=== PATIENT | female | born 1995 | race Caucasian/White ===

== ENCOUNTER 2017-08-05 05:40 | Inpatient (IN) | END 2017-08-09 20:10 | disposition home or self-care (01) | DRG 766 ==

== ENCOUNTER 2018-09-21 22:12 | Outpatient (CLI) | payer OTHER ==
[~2018-09-21] VITALS: Ht 165.1 cm; Wt 124.4 kg
[~2018-09-21 22:12] MED LIST: PRENAT PO
[2018-09-21 22:33] VITALS: BP 112/76; PULSE 118; RESP 17; Ht 165.1 cm; Wt 124.4 kg
[2018-09-21] MEDS ORDERED: LACTATED RINGER'S 1,000 ML IV SCH (22:48)
[2018-09-22] MEDS ORDERED: LACTATED RINGER'S 1,000 ML IV SCH (01:30)
--- NOTE | 2018-09-22 04:40 | PN ---
Triage Information Date/Time Reason for visit: Abd/pelvic pain Weeks of Gestation 28 weeks /Para Diabetes: none Hypertention: none Objective Vital Signs Date Temp Pulse Resp B/P (MAP) Pulse Ox O2 O2 Flow FiO2 Time Delivery Rate 09/21/18 99.5 118 17 112/76 Room Air 22:33 (88) Intake and Output 09/21/18 09/21/18 09/22/18 1515:00 23:00 07:00 IntakeIntake Total 2000 ml OutputOutput Total 300 ml BalanceBalance 1700 ml Heart Rate: 150's Heart Rate Comments Reactive Results/Medications Result Diagram: 09/21/18 2325 09/21/18 2325 Results 24 hrs Laboratory Tests Test 09/21/18 23:00 09/21/18 23:25 Urine Color GERI Urine Clarity CLOUDY A Urine pH 5.0 Urine Specific [place] 1.029 Urine Ketones 2+ H Urine Nitrite NEGATIVE Urine Bilirubin NEGATIVE Urine Urobilinogen NEGATIVE Urine Leukocyte Esterase TRACE A Urine Microscopic RBC 7 H Urine Microscopic WBC 21 H Urine Squamous Epithelial Cells MODERATE Urine Bacteria MODERATE Urine Mucus MODERATE Urine Hemoglobin NEGATIVE Urine Glucose NEGATIVE Urine Total Protein 1+ H White Blood Count 12.0 H Red Blood Count 4.44 Hemoglobin 10.4 L Hematocrit 34.1 L Mean Corpuscular Volume 76.8 L Mean Corpuscular Hemoglobin 23.4 L Mean Corpuscular Hemoglobin Concent 30.5 L Red Cell Distribution Width 14.1 Platelet Count 319 Mean Platelet Volume 10.5 H Immature Granulocytes % 0.800 H Neutrophils % 88.2 H Lymphocytes % 7.2 L Monocytes % 3.4 Eosinophils % 0.2 Basophils % 0.2 Nucleated Red Blood Cells % 0.0 Immature Granulocytes # 0.090 H Neutrophils # 10.6 H Lymphocytes # 0.9 Monocytes # 0.4 Eosinophils # 0.0 Basophils # 0.0 Nucleated Red Blood Cells # 0.0 Sodium Level 138 Potassium Level 3.4 L Chloride Level 104 Carbon Dioxide Level 21 Anion Gap 13 Blood Urea Nitrogen 7 Creatinine 0.42 L Est Glomerular Filtrat Rate mL/min > 60 Glucose Level 101 Calcium Level 8.6 Total Bilirubin 0.2 Direct Bilirubin 0.00 Indirect Bilirubin 0.2 Aspartate Amino Transf (AST/SGOT) 23 Alanine Aminotransferase (ALT/SGPT) 18 Alkaline Phosphatase 113 Total Protein 7.6 Albumin 3.7 Globulin 3.90 H Albumin/Globulin Ratio 0.94 Amylase Level 88 Lipase 41 Medications Current Medications Lactated Ringer's 1,000 ml @ 125 mls/hr Q8H IV Last administered on 09/22/18at 01:38; Admin Dose 125 MLS/HR; Start 09/22/18 at 01:30 Disposition: Discharge Assessment/Plan After IV hydration and rest patient feels better. MARIEL THOMSON MD Sep 22, 2018 04:40
--- NOTE | 2018-09-22 05:03 | TRIAGE ---
OB Triage Datetime Report Generated by CPN: 09/22/2018 05:03 Datetime: 09/22/2018 03:41 Stage of : OB Triage Monitor Mode: External Quality: Mild Pattern: Normal: <= 5 Contractions in 10 Minutes Resting Tone [place]: Relaxed Heart Rate FHR Baseline Rate: 155 Monitor Mode: External US Variability: Moderate 6-25 bpm Accelerations: 15X15 Comments: Baby audibly active but difficult to monitor d/t pt body habitus Datetime: 09/22/2018 03:00 Labor Evaluation Frequency: none Monitor Mode: External Resting Tone [place]: Relaxed Heart Rate FHR Baseline Rate: 160 Monitor Mode: External US Variability: Moderate 6-25 bpm Accelerations: 15X15 Decelerations: None Datetime: 09/22/2018 02:13 Vaginal Exam Membrane Status: Intact Datetime: 09/22/2018 02:00 Labor Evaluation Frequency: NONE Monitor Mode: External Resting Tone [place]: Relaxed Heart Rate FHR Baseline Rate: 165 Monitor Mode: External US Variability: Moderate 6-25 bpm Accelerations: 15X15 Decelerations: None Datetime: 09/22/2018 01:42 Stage of : OB Triage Temperature Route: Oral Datetime: 09/22/2018 01:00 Labor Evaluation Frequency: NONE Monitor Mode: External Resting Tone [place]: Relaxed Heart Rate FHR Baseline Rate: 165 Monitor Mode: External US Variability: Moderate 6-25 bpm Accelerations: 15X15 Decelerations: None Comments: LOSS OF CONTACT DUE TO PT CHANGING POSITION/PT LARGE BMI Datetime: 09/22/2018 00:43 Stage of : OB Triage Temperature Route: Oral Datetime: 09/22/2018 00:00 Labor Evaluation Frequency: NONE Monitor Mode: External Resting Tone [place]: Relaxed Heart Rate FHR Baseline Rate: 165 Monitor Mode: External US Variability: Moderate 6-25 bpm Accelerations: None Decelerations: None Comments: LOSS OF CONTACT DUE TO GA/PT LARGE BMI Datetime: 09/21/2018 23:00 Labor Evaluation Frequency: NONE Monitor Mode: External Resting Tone [place]: Relaxed Heart Rate FHR Baseline Rate: 165 Monitor Mode: External US FHR Baseline Changes: Tachycardia Variability: Moderate 6-25 bpm Accelerations: None Decelerations: None Comments: LOSS OF CONTACT DUE TO GA/PT LARGE BMI Datetime: 09/21/2018 22:40 Stage of : OB Triage Maternal Assessment Level of Consciousness: Fully Conscious DTR's/Clonus: DTRs 2+; No Clonus Headache: Denies Blurred Vision: No Respiratory Effort: Unlabored; Regular Rhythm; Equal Expansion Breath Sounds, Left: Clear and Equal Breath Sounds, Right: Clear and Equal Nausea/Vomiting: Denies RUQ Epigastric Pain: Denies Lower Extremities Edema: None Degree: None Upper Extremities Edema: None Degree: None Facial Edema: None Temperature Route: Oral Fall Risk Assessment History of Falling: (0) No Secondary Diagnosis: (0) No Ambulatory Aid: (0) Bedrest/Nurse Assist IV Therapy: (0) No Gait: (0) Normal/Bedrest/Immobile Mental Status: (0) Oriented to Own Ability Fall Score: 0 Fall Risk Score Definition: No Risk: No action required Pain Assessment Pain Scale: 7 Pain Presence: Intermittent Pain Type: Contraction Pain Location: Abdomen Pain Goal: 3 Pain Relief Measures: Comfort Measures Datetime: 09/21/2018 22:38 Time of Arrival: 09/21/2018 22:02 EGA: 28.0 Arrived By: Ambulatory Arrived From: Emergency Dept Chief Complaint: PT PRESENTS TO TRIAGE WITH C/O OF ABD PAIN Q 15 MIN, SPOTTING WHEN WIPING SINCE 09/20, COUGH X4 DAYS AND A "FEVER" BUT DID NOT TAKE TEMPERATURE AT HOME Movement: Present Contractions: Occasional Rupture of Membranes: Denies Vaginal Bleeding: None Vaginal Discharge: Denies Recent Sexual Intercouse: Denies Abdominal Trauma: Not Applicable Patient Complaints: Other Time Provider Notified: 09/21/2018 22:46 Provider Notified: ALIX Initial Plan: EFM Datetime: 09/21/2018 22:24 Contraction Comments: TOCO APPLIED Comments: US APPLIED
== END 2018-09-22 04:42 | disposition home or self-care (01) ==
LOC: OBT 22:12 → L-D 22:14 → OBT 09-22 04:42
PROVIDERS: ATTEND Obstetrics & Gynecology
DX: O26.892 Other specified pregnancy related conditions, second trimester (principal); Z3A.28 28 weeks gestation of pregnancy; R10.2 Pelvic and perineal pain
CPT/HCPCS: 36415; 76815; 76817; 76818; 80053; 81001; 82150; 83690; 85025; 86850; 86900; 86901; 96360; 96361; J7120; Z7500; G0463

== ENCOUNTER 2018-10-03 19:41 | Outpatient (CLI) | payer OTHER ==
[~2018-10-03] VITALS: Ht 162.6 cm; Wt 109.2 kg
[2018-10-03 19:57] VITALS: Ht 162.6 cm; Wt 109.2 kg
[2018-10-03] MEDS ORDERED: LACTATED RINGER'S 1,000 ML IV* PRN (20:30)
--- NOTE | 2018-10-03 22:36 | PN ---
Triage Information Date/Time Reason for visit: Abd/pelvic pain Weeks of Gestation 29 weeks /Para Diabetes: none Hypertention: none Objective Heart Rate: 130's Heart Rate Comments Reactive Results/Medications Result Diagram: 10/03/18199910/03/181999 Results 24 hrs Laboratory Tests Test 10/03/18 20:00 White Blood Count 11.6 H Red Blood Count 4.56 Hemoglobin 10.7 L Hematocrit 34.3 L Mean Corpuscular Volume 75.2 L Mean Corpuscular Hemoglobin 23.5 L Mean Corpuscular Hemoglobin Concent 31.2 L Red Cell Distribution Width 14.2 Platelet Count 364 Mean Platelet Volume 10.4 Immature Granulocytes % 0.400 Neutrophils % 67.5 Lymphocytes % 24.1 Monocytes % 7.1 Eosinophils % 0.6 Basophils % 0.3 Nucleated Red Blood Cells % 0.0 Immature Granulocytes # 0.050 H Neutrophils # 7.9 H Lymphocytes # 2.8 Monocytes # 0.8 Eosinophils # 0.1 Basophils # 0.0 Nucleated Red Blood Cells # 0.0 Urine Color GERI Urine Clarity CLOUDY A Urine pH 5.0 Urine Specific [place] 1.031 H Urine Ketones NEGATIVE Urine Nitrite NEGATIVE Urine Bilirubin NEGATIVE Urine Urobilinogen 2+ H Urine Leukocyte Esterase TRACE A Urine Microscopic RBC 10 H Urine Microscopic WBC 15 H Urine Squamous Epithelial Cells MODERATE Urine Bacteria FEW A Urine Mucus MANY A Urine Hemoglobin NEGATIVE Urine Glucose NEGATIVE Urine Total Protein 2+ H Sodium Level 139 Potassium Level 3.4 L Chloride Level 107 Carbon Dioxide Level 19 L Anion Gap 13 Blood Urea Nitrogen 6 L Creatinine 0.45 Est Glomerular Filtrat Rate mL/min > 60 Glucose Level 82 Calcium Level 9.2 Total Bilirubin 0.2 Direct Bilirubin 0.00 Indirect Bilirubin 0.2 Aspartate Amino Transf (AST/SGOT) 41 Alanine Aminotransferase (ALT/SGPT) 56 Alkaline Phosphatase 142 H Total Protein 7.9 Albumin 3.8 Globulin 4.10 H Albumin/Globulin Ratio 0.92 Amylase Level 60 Lipase 49 Medications Current Medications Lactated Ringer's 1,000 ml @ 125 mls/hr Q8H PRN IV* hydration Last administered on 10/03/18at 20:53; Admin Dose 125 MLS/HR; Start 10/03/18 at 20:30 Imaging Results cervical length is normal Disposition: Discharge Assessment/Plan After IV hydration and rest, patient feels better and denies any symptoms. MARIEL THOMSON MD 17, 2019 22:36
--- NOTE | 2018-10-03 23:26 | TRIAGE ---
OB Triage Datetime Report Generated by CPN: 10/03/2018 23:25 Datetime: 10/03/2018 22:31 Heart Rate FHR Baseline Rate: 150 Monitor Mode: External US FHR Baseline Changes: No Baseline Change Variability: Moderate 6-25 bpm Datetime: 10/03/2018 21:00 Comments: continuous monitoring with loss of contact d/t maternal habitus. pt is morbidly obese Datetime: 10/03/2018 20:30 Comments: continuous monitoring with loss of contact d/t maternal habitus. pt is morbidly obese Datetime: 10/03/2018 19:57 Heart Rate FHR Baseline Rate: 150 FHR Baseline Changes: No Baseline Change Datetime: 10/03/2018 19:55 Comments: continuous monitoring with loss of contact d/t maternal habitus. patient is morbidly obes e has excessive pannus. Datetime: 10/03/2018 19:49 Time of Arrival: 10/03/2018 19:30 EGA: 29.5 Arrived By: Ambulatory Arrived From: Home Chief Complaint: 'DIZZY, ABD PAIN, SOME DIARRHEA,N/V "I FEEL SICK' PATIENT WAS SEEN FOR SAME SYMPTOMS ON 09/21/18 Movement: Present Contractions: Denies/Absent Rupture of Membranes: Denies Vaginal Bleeding: Scant Vaginal Discharge: Denies Recent Sexual Intercouse: Denies Abdominal Trauma: Not Applicable Patient Complaints: Nausea; Vomiting Time Provider Notified: 10/03/2018 20:05 Provider Notified: delshad Datetime: 10/03/2018 19:44 Stage of : OB Triage Assessment Type: Triage Maternal Assessment Level of Consciousness: Fully Conscious Headache: Denies Blurred Vision: No Respiratory Effort: Unlabored; Regular Rhythm; Equal Expansion Nausea/Vomiting: Denies RUQ Epigastric Pain: Denies Facial Edema: None Temperature Route: Oral Fall Risk Assessment History of Falling: (0) No Secondary Diagnosis: (0) No Ambulatory Aid: (0) Bedrest/Nurse Assist IV Therapy: (0) No Gait: (0) Normal/Bedrest/Immobile Mental Status: (0) Oriented to Own Ability Fall Score: 0 Fall Risk Score Definition: No Risk: No action required Datetime: 09/22/2018 04:27 Stage of : OB Triage Labor Evaluation Quality: Mild Pattern: Normal: <= 5 Contractions in 10 Minutes Resting Tone [place]: Relaxed Heart Rate FHR Baseline Rate: 160 Monitor Mode: External US FHR Baseline Changes: No Baseline Change Variability: Moderate 6-25 bpm Accelerations: 15X15 Decelerations: None Category: Category I Datetime: 09/21/2018 22:40 Fall Score: 0 Fall Risk Score Definition: No Risk: No action required Datetime: 09/21/2018 22:38 EGA: 28.0
== END 2018-10-03 22:47 | disposition home or self-care (01) ==
LOC: L-D 19:41 → OBT 19:41
PROVIDERS: ATTEND Obstetrics & Gynecology
DX: O26.893 Other specified pregnancy related conditions, third trimester (principal); Z3A.29 29 weeks gestation of pregnancy; R10.2 Pelvic and perineal pain
CPT/HCPCS: 36415; 76817; 76818; 80053; 81001; 82150; 83690; 85025; 96360; 96361; Z7500; G0463

== ENCOUNTER 2018-12-08 09:25 | Inpatient (IN) | payer OTHER ==
[~2018-12-08] VITALS: Ht 162.6 cm; Wt 125.4 kg
[2018-12-08 09:39] VITALS: Ht 162.6 cm; Wt 125.4 kg
[2018-12-08] MEDS ORDERED: OXYTOCIN 30 UNITS/LR 500 ML IV SCH (10:00)
[2018-12-08] MEDS ORDERED: CEFAZOLIN 3 GM in DEXTROSE 5% 100 ML IV ONE (10:00)
[2018-12-08] MEDS ORDERED: METHYLERGONOVINE 0.2 MG INJ IM PRN (10:00)
[2018-12-08] MEDS ORDERED: MISOPROSTOL 200 MCG TAB PR PRN (10:00)
[2018-12-08] MEDS ORDERED: AZITHROMYCIN 500MG/NS (PMX) 250 ML IV SCH (10:00)
[2018-12-08] MEDS ORDERED: OXYTOCIN 30 UNITS/LR 500 ML IV PRN (10:00)
[2018-12-08] MEDS ORDERED: CEFAZOLIN 2 GM/50 ML (PMX) 50 ML IVPB SCH (10:00)
[2018-12-08] MEDS ORDERED: CARBOPROST 250 MCG INJ IM PRN (10:00)
[2018-12-08] MEDS: LACTATED RINGER'S 1,000 ML IV SCH ×2 (10:20→19:12)
--- NOTE | 2018-12-08 20:42 | PREAC ---
Date/Time of Note Date/Time of Note DATE: 12/08/18 TIME: 20:41 Anesthesia Eval and Record Evaluation Time Pre-Procedure Interview DATE: 12/08/18 TIME: 20:41 Age 23 Sex female NPO: 8 hrs Preoperative diagnosis previous c section Planned procedure repeat c section Past Medical History Past Medical History: Includes GI: Morbid obesity Surgery & Anesthesia Issues No known issue Meds Anticoagulation: No Beta Mauricio within 24 hr: No Reason Beta Mauricio not given: Pt. not on B-Mauricio Reported Medications Multivit/Min/Fol Ac/Iron/Pren* ( S*) 1 Tab Tab, 1 TAB PO DAILY, TAB 04/08/16 Current Medications Lactated Ringer's 1,000 ml @ 125 mls/hr Q8H IV Last administered on 12/08/18at 19:12; Admin Dose 125 MLS/HR; Start 12/08/18 at 09:35 Oxytocin/Lactated Ringer's 500 ml @ 125 mls/hr POST IV ; Start 12/08/18 at 10:00 Oxytocin/Lactated Ringer's 500 ml @ 0 mls/hr ONCE PRN IV .VAGINAL BLEEDING; Sta rt 12/08/18 at 10:00 Methylergonovine Maleate (Methergine) 0.2 mg ONCE PRN IM .VAGINAL BLEEDING; Sta rt 12/08/18 at 10:00 Carboprost Tromethamine (Hemabate) 250 mcg ONCE PRN IM .VAGINAL BLEEDING; Start 12/08/18 at 10:00 Misoprostol (Cytotec) 1,000 mcg ONCE PRN GA .VAGINAL BLEEDING; Start 12/08/18 at 10:00 Meds reviewed: Yes Allergies Coded Allergies: No Known Allergy (Unverified , 10/03/18) Allergies Reviewed: Yes Labs/Studies Labs Reviewed: Reviewed by anesthesiologist Result Diagram: 12/08/18 1010 Laboratory Tests 12/08/18 10:10 Blood Bank Test 12/08/18 10:10 Antibody Screen NEGATIVE Blood Product Summary Counts Blood Type A POSITIVE Rh Immune Globulin Candidate NO test: N/A Pre-procedure Exam Airway: Adequate mouth opening, Adequate thyromental dist Mallampati: Mallampati III Teeth: Normal Lung: Normal Heart: Normal ASA Physical Status ASA physical status: 2 Emergency: None Pre-operative Attestations Prior to commencing anesthesia and surgery, the patient was re-evaluated, there was verification of: *The patient's identity *The results of appropriate recent lab work and preoperative vital signs *The above evaluation not changing prior to induction *Anesthetic plan, risk benefits, alternative and complications discussed with patient/family; questions answered; patient/family understands, accepts and wishes to proceed. TAMIE KONG DO December 08, 2018 20:42
[2018-12-08] MEDS ORDERED: morphine SULFATE/PF (10 MG/10 ML) INJ ONE ×2 (20:45→20:46)
[2018-12-08] MEDS ORDERED: FENTAnyl 50 MCG/ML VIAL ONE (20:45)
--- NOTE | 2018-12-08 20:49 | HP ---
Date/Time of Note Date/Time of Note DATE: 12/08/18 TIME: 20:44 OB - History Hx of Present Free Text/Dictation 23 years old 4 para 3-0-0-3 with single intrauterine at 39 weeks and 1 day with ADRIAN of 12/14/2018 and 3 previous delivery admitted for repeat delivery. She states good movement. She denies nausea, vomiting, shortness of breath, chest pain, headache, visual changes, vaginal bleeding or LOF. Risk factors: 1. Previous delivery x3 2. ObesityBMI of 47.5 3. Anemiahemoglobin 9.1 Chief Complaint: Scheduled for repeat delivery Estimated Due Date: December 14, 2018 : 403 Para: 0 Spontaneous : 0 Care: Good Care Ultrasounds: Normal mid trimester US Obstetrical Complications: None Medical Complications: None Past Family/Social History * Past Medical, Surgical, Family and Obstetric Histories reviewed from chart. Blood Type: A+ Rubella: not immune RPR/VDRL: Negative GBS Status: Negative HBsAG: Negative OB Admission Exam Vital Signs Vital Signs Blood pressure 126/73, pulse rate 72/minutes, respiratory rate 16/minutes, temperature 98.6 Physical Exam HEENT: WNL Heart: Rhythm Normal Lungs: Clear Abdomen: WNL Extremities: Normal Reflexes: Normal Membranes: Intact Accelerations: Accelerations Present Decelerations: No Decelerations Varibility: Moderate Contractions on Admission: None Last 72 hours Lab Results CBC & BMP 12/08/18 10:10 OB Assessment/Plan Other plan: 23 years old 4 para 3-0-0-3 with 3 previous delivery admitted for repeat delivery. -FHR: No sign of metabolic acidosis- Category I -Continuous EFM, toco -CBC, blood type and screen -Receptive options with the risk, benefit, alternative, failure rate discussed in detail with patient during visit. She decided to have bilateral tubal ligation and signed the consent form. However today she states is not interested to bilateral tubal ligation anymore -Please see the orders -A+/Rubella: None immune -GBS: Negative The risk of delivery including but not limited to bleeding, infection, injury to other organs (bowel, bladder, ureter, vessels, nerves), injury to fetus, blood transfusion, blood transfusion related infection, risk of anesthesia, adhesion, needs for future , removal of uterus or any other indicated surgery was discussed with the patient and her family. She expressed understanding. All of her questions were answered. She signed the informed consent. PHYSICIAN'S VERIFICATION OF INFORMED CONSENT The patient was counseled regarding the procedure, its indications, risks, potential complications and alternatives and any questions were answered. Consent was obtained. PLANNED PROCEDURE/TREATMENT: delivery with possible using vacuum/forceps and any other indicated surgery PHYSICIAN'S VERIFICATION OF INFORMED CONSENT FOR BLOOD TRANSFUSION: There is a reasonable possibility that blood transfusion will be necessary as a result of the patient's procedure. I have discussed the following with the patient/patient's legal ict sales representative: An explanation of the benefits and risks of the transfusion of blood or blood products and the possible alternat gurwinder. All questions have been answered to the patient's satisfaction. INFORMED CONSENT:The patient has been informed of: The nature of the proposed care, treatment, services, medications, interventi ons or procedures. Potential benefits, risks or side effects, including potential problems related to recuperation. The likelihood of achieving care treatment and service goals. Reasonable alternatives to the proposed care, treatment and service. The relevant risks, benefits and side effects related to alternatives, including the possible results of not receiving care, treatment and services. When indicated, any limitations on the confidentiality of information learned from or about the patient. If appropriate, the risks, benefits and alternatives of the drugs to be used for sedation/analgesia including moderate sedation. If appropriate, patient has been provided information on the risks, benefits and alternatives to the transfusion of blood and/or blood products. If appropriate, patient has been provided information regarding the [employer] Blood Act. KOSTAS ART December 08, 2018 20:49
[2018-12-08] MEDS ORDERED: HYDROmorphONE 0.5 MG/0.5 ML SYG IV PRN ×2 (21:00)
[2018-12-08] MEDS ORDERED: ONDANSETRON 4 MG INJ IV PRN (21:00)
[2018-12-08] MEDS ORDERED: DEXAMETHASONE 4 MG/ML 1 ML INJ ONE (21:00)
[2018-12-08] MEDS ORDERED: DIPHENHYDRAMINE 50 MG INJ IV PRN (21:00)
[2018-12-08] MEDS ORDERED: ZOLPIDEM 5 MG TAB PO PRN (21:00)
[2018-12-08] MEDS ORDERED: NALOXONE (0.4 MG/ML) INJ IV PRN (21:00)
--- NOTE | 2018-12-08 22:44 | PAC ---
Date/Time of Note Date/Time of Note DATE: 12/08/18 TIME: 22:43 Post-Anesthesia Notes Post-Anesthesia Note Last documented vital signs 124/58 80 96% 98 19 Activity: WNL Respiratory function: WNL Cardiovascular function: WNL Mental status: Baseline Pain reasonably controlled: Yes Hydration appropriate: Yes Nausea/Vomiting absent: Yes TAMIE KONG DO December 08, 2018 22:44
--- NOTE | 2018-12-08 23:37 | OPR ---
Operative Report Planned Procedure Procedure date December 08, 2018 Procedure(s) 1. Repeat low transverse delivery 2. Lysis of adhesion Performed by see signature line Patient Account Liaison: JAYY DE PAZ MD Anesthesiologist: TAMIE KONG DO Pre-procedure diagnosis 23 years old 4 para 3-0-0-3 with 3 previous delivery at 39 weeks and 1 day [id number] Anesthesia Type: [id number] spinal Post-Procedure Post-procedure diagnosis 23 years old 4 para 3-0-0-3 with single intrauterine at 39 weeks and 1 day Findings 1. Normal uterus except for 5 m window at center toward left side of lower uterine segment. Normal fallopian tubes and ovaries. 2. There was multiple omental adhesion to the peritoneum 3. Viable female in cephalic presentation. 8 at one minute and 9 in 5 minutes. Weight: 7 pounds 2 ounces. Time of delivery: 21: 35 4. Placenta with three vessel cord 5. Amniotic fluid - Clear Estimated Blood Loss: 600 - 700 mls Specimen(s) none Grafts/Implant(s) none Complication(s) none Pt Condition post procedure: stable Disposition: PACU Procedure Description INDICATION AND HISTORY: A 23 years old 4 para 3-0-0-3 at 39 weeks and 1 days with 3 previous delivery. The risk of delivery including but not limited to bleeding, infection, injury to other organs (bowel, bladder, ureter, vessels, nerves), injury to fetus, blood transfusion, blood transfusion related infection, risk of anesthesia, adhesion, needs for future , removal of uterus or any other indicated surgery was discussed with the patient and her family. She expressed understanding. All of her questions were answered. She signed the informed consent. DESCRIPTION OF OPERATION: The patient was taken to the operating room, where she was identified and the procedure was verified. The patient received three gram of Ancef 30 minutes prior to surgery. Spinal anesthesia was placed by anesthesiologist. The patient placed in the dorsal supine position with a left tilt. The heart rate was 137 bpm. The patient was then prepped and draped in the normal sterile fashion. A Pfannenstiel skin incision was made and carried down to the fascia with Bovie. The fascia was incised in the midline and the fascial incision was carried laterally with Joseph scissors. The superior portion of the fascial incision was then grasped with Dora clamps and tented up and dissected off the underlying rectus muscle with sharp dissection. The lower portion of the fasc ial incision was then made in a similar fashion. The rectus muscle was and the peritoneum was entered. The peritoneal incision was then stretched and a bladder blade was inserted. As noted above there was a 5 cm window at center toward the left side of lower uterine segment. An incision was made above the window in a transverse fashion with a knife and extended bluntly. The was delivered atraumatically in cephalic presentation with the above findings. The umbilical cord was clamped and cut. The neonatology resuscitation team was present and the baby was handed to them. A cord blood sample was obtained for further evaluation. The placenta and membrane, which appeared normal were Removed. The uterus was exteriorized and cleared of all clot and debris. The uterus was then closed in a two layer fashion with 0- Monocryl. There was only the peritoneum on the the window, lateral edge of the window was approximated with the 0 Vicryl. Intercede placed on the lower uterine segment. At the time of closure, hemostasis was noted. The gutters were irrigated. There was multiple omental adhesion on the peritoneum which clamp, cauterize and suture-ligated. Then the peritoneum was reapproximated with 3-0 Vicryl. The muscle was reapproximated with 3-0 Vicryl. The fascia was approximated with 0-PDS in a running fashion. The subcutaneous tissue was re approximated with 3-0 vicryl in 2 layer. The skin was closed with 4-0 Monocryl. All instruments, sponges and needle counts were correct x3. The patient tolerated the procedure well. She transferred to the recovery room in stable condition. KOSTAS ART December 08, 2018 23:37
[2018-12-08] MEDS: KETOROLAC 30 MG INJ IV PRN (23:41)
[2018-12-09] VITALS (7 sets, daily range): BP systolic 85–101; BP diastolic 43–74; PULSE 61–68; RESP 16–20
[2018-12-09] MEDS ORDERED: OXYTOCIN 30 UNITS/LR 500 ML IV SCH (02:02)
[2018-12-09] MEDS: DEXTROSE 5%-LR 1,000 ML IV SCH ×3 (02:02→18:02)
[2018-12-09] MEDS ORDERED: METHYLERGONOVINE 0.2 MG INJ IM PRN (02:30)
[2018-12-09] MEDS ORDERED: LANOLIN HPA 1 PKT TOP PRN (02:30)
[2018-12-09] MEDS ORDERED: CARBOPROST 250 MCG INJ IM PRN (02:30)
[2018-12-09] MEDS ORDERED: METHYLERGONOVINE 0.2 MG TAB PO PRN (02:30)
[2018-12-09] MEDS ORDERED: MISOPROSTOL 200 MCG TAB PR PRN (02:30)
[2018-12-09] MEDS ORDERED: OXYTOCIN 30 UNITS/LR 500 ML IV PRN (02:30)
[2018-12-09] MEDS ORDERED: MAGNESIUM HYDROXIDE 30ML CUP PO PRN (02:30)
[2018-12-09] MEDS: KETOROLAC 30 MG INJ IV PRN ×2 (05:29→14:21)
[2018-12-09] MEDS: SENNA/DOCUSATE NA (8.6MG/50MG) TAB PO SCH ×2 (09:45→22:21)
[2018-12-09] MEDS ORDERED: DIPHTH/TET/ACEL PERTUSS (ADULT) 0.5 ML VIAL IM* ONE (11:00)
[2018-12-09] MEDS ORDERED: LACTATED RINGER'S 500 ML IV ONE (16:30)
--- NOTE | 2018-12-09 19:21 | PN ---
Date/Time of Note Date/Time of Note DATE: 12/09/18 TIME: 18:56 OB Subjective Subjective Subjective Has not been out of the bed yet. Urinated. Reports decreased vaginal bleeding. Reports some nausea. Pain well-controlled with p.o. pain medication. Reports he still has some nausea. Tolerated clear liquid diet. Passed flatus. OB Objective Objective Objective GA: A&O. NAD Abdomen: soft, with appropriate tenderness in the section incision Symptoms, no calf tenderness, no click no edema. SCDs are on Burrell draining concentrated urine Lungs: Clear to auscultation bilaterally CV: RRR VS - Last 72 Hours, by Label Date Temp Pulse Resp B/P (MAP) Pulse Ox O2 O2 Flow FiO2 Time Delivery Rate 12/09/18 97.6 65 18 93/50 (64) 97 Room Air 16:30 12/09/18 97.7 65 18 85/43 (57) 97 Room Air 16:00 12/09/18 97.8 64 18 94/55 (68) 97 12:05 12/09/18 97.8 66 18 101/69 97 08:00 (80) 12/09/18 98.4 61 18 96/53 (67) 97 Room Air 04:00 12/09/18 97.9 68 20 95/74 (81) 97 Room Air 00:45 CBC & BMP 12/08/18 10:10 12/09/18 07:56 OB Assessment/Plan Other Assessment: Postop day #1 status post repeat section Postop anemia, asymptomatic Hypertension, asymptomatic, likely dehydration Start IV fluid, 500 cc IV bolus Follow-up of her blood pressure and symptoms Routine postop care Start iron with vitamin after tolerating p.o. well Routine postop care JAYY DE PZA MD December 09, 2018 19:21
[2018-12-09] MEDS ORDERED: HYDROCODONE/APAP (5/325) TAB PO PRN (21:00)
[2018-12-09] MEDS: IBUPROFEN 800 MG TAB PO SCH (22:21)
[2018-12-09] MEDS: HYDROCODONE/APAP (5/325) TAB PO SCH (22:21)
[2018-12-10 00:28] VITALS: BP 97/54; PULSE 68; RESP 18
[2018-12-10] MEDS: DEXTROSE 5%-LR 1,000 ML IV SCH (01:35)
[2018-12-10 03:58] VITALS: BP 90/54; PULSE 63; RESP 16
[2018-12-10] MEDS: HYDROCODONE/APAP (5/325) TAB PO SCH ×3 (06:27→22:00)
[2018-12-10] MEDS: IBUPROFEN 800 MG TAB PO SCH ×3 (06:27→21:59)
[2018-12-10 08:00] VITALS: BP 91/55; PULSE 67; RESP 16
[2018-12-10] MEDS: SENNA/DOCUSATE NA (8.6MG/50MG) TAB PO SCH ×2 (10:16→22:00)
--- NOTE | 2018-12-10 11:30 | QN ---
Documentation Comment flatus pos no B.M yet Vss sfebrile abdomen soft wound dry calf neg for tenderness lochia min A sstable post Rc/s P as ordered SARA MATTHEWS MD December 10, 2018 11:30
[2018-12-10 15:50] VITALS: BP 101/62; PULSE 74; RESP 18
[2018-12-10 20:00] VITALS: BP 108/71; PULSE 88; RESP 18
[2018-12-11 04:07] VITALS: BP 105/57; PULSE 93; RESP 18
[2018-12-11] MEDS: IBUPROFEN 800 MG TAB PO SCH ×2 (05:32→14:14)
[2018-12-11] MEDS: HYDROCODONE/APAP (5/325) TAB PO SCH ×2 (06:00→14:00)
[2018-12-11 08:45] VITALS: BP 108/67; PULSE 95; RESP 16
[2018-12-11] MEDS ORDERED: DIPHTH/TET/ACEL PERTUSS (ADULT) 0.5 ML VIAL IM* ONE (09:00)
[2018-12-11] MEDS ORDERED: MEASLES,MUMPS,RUBELLA VACCINE INJ SC* ONE (09:00)
[2018-12-11] MEDS: SENNA/DOCUSATE NA (8.6MG/50MG) TAB PO SCH (09:12)
[2018-12-11 16:00] VITALS: BP 104/67; PULSE 81; RESP 18
--- NOTE | 2018-12-11 16:59 | DS ---
Date/Time of Note Date/Time of Note DATE: 12/11/18 TIME: 16:58 Obstetrical Discharge Record Final Diagnosis Final Diagnosis: Term delivered Other Final Diagnosis Postop day #3 Status pos repeat Patient stable and afebrile Patient is ambulating, tolerating regular diet, voiding and positive flatus Vital signs stable Hematology - 72 Hrs Test 12/09/18 07:56 Hematocrit 30.3 % (37.0-47.0) L Hemoglobin 8.9 g/dl (12.0-16.0) L Mean Corpuscular Hemoglobin 21.5 pg (29.0-33.0) L Mean Corpuscular Hemoglobin Concent 29.4 g/dl (32.0-37.0) L Mean Corpuscular Volume 73.4 fl (82.0-101.0) L Mean Platelet Volume 11.2 fl (7.4-10.4) H Platelet Count 279 10^3/UL (140-415) Red Blood Count 4.13 10^6/ul (4.20-5.40) L Red Cell Distribution Width 15.0 % (11.5-14.5) H White Blood Count 15.0 10^3/ul (4.8-10.8) #H Abdomen soft, fundus firm Incision clean, dry, intact Extremities nontender Assessment and plan Patient stable and doing well Plan to discharge home Patient instructed to follow-up with her own ADULT FAMILY HOME PROGRAM MANAGER in 2 and 6 weeks Section Section: Repeat Condition on Discharge Physical Assessment Last Vitals: VS - Last 72 Hours, by Label Date Temp Pulse Resp B/P (MAP) Pulse Ox O2 O2 Flow FiO2 Time Delivery Rate 12/11/18 97.9 81 18 104/67 16:00 (79) 12/11/18 98.0 95 16 108/67 Room Air 08:45 (81) 12/11/18 98.0 93 18 105/57 Room Air 04:07 (73) 12/10/18 98.7 88 18 108/71 Room Air 20:00 (83) 12/10/18 97.8 74 18 101/62 Room Air 15:50 (75) 12/10/18 98.3 67 16 91/55 (67) Room Air 08:00 12/10/18 97.7 63 16 90/54 (66) Room Air 03:58 12/09/18 98.1 68 16 97/54 (68) 96 Room Air 20:00 12/09/18 97.6 65 18 93/50 (64) 97 Room Air 16:30 12/09/18 97.7 65 18 85/43 (57) 97 Room Air 16:00 12/09/18 97.8 64 18 94/55 (68) 97 12:05 12/09/18 97.8 66 18 101/69 97 08:00 (80) 12/09/18 98.4 61 18 96/53 (67) 97 Room Air 04:00 12/09/18 97.9 68 20 95/74 (81) 97 Room Air 00:45 Voiding: Yes Bowel Movement: Yes Breast: Soft, non-tender Fundus: Firm Calf Tenderness: No Patient Condition: Good Copies To: CC: [facility] ; VIDAL BRIGGS MD December 11, 2018 16:59
--- NOTE | 2018-12-12 19:51 | DELSUM ---
Delivery Summary A-C Datetime Report Generated by CPN: 12/12/2018 19:51 DELIVERY PERSONNEL Berry Picker: Gilliland, Nikia MATERNAL INFORMATION Delivery Anesthesia: Spinal Medications in Delivery: see anesthesia records Delivery QBL (ml): 600 Placenta Cultured: No Maternal Complications: Other Other Maternal Complications: MORBID OBESITY LABOR SUMMARY EDC: 12/14/2018 00:00 No. Babies in Womb: 1 Attempted: No Labor Anesthesia: None LABOR INFORMATION Reason for Induction: Not Applicable Oxytocin: N/A Group B Beta Strep: Positive Antibiotics # of Doses: 1 Antibiotics Time of Last Dose: 12/08/2018 21:00 Steroids Given: None Reason Steroids Not Administered: Not Applicable MEMBRANES Membranes Rupture Method: Artificial Rupture of Membranes: 12/08/2018 21:33 Length of Rupture (hr): 0.03 Amniotic Fluid Color: Bloody Amniotic Fluid Amount: Moderate STAGES OF LABOR Stage 3 hr: 0 Stage 3 min: 1 CSECTION DELIVERY Primary Indication: Repeat Elective CSection Urgency: Non Elective CSection Incidence: Repeat Labor: No Labor Elective: Nonelective CSection Incision: Lower Uterine Transverse BABY A INFORMATION Infant Delivery Date/Time: 12/08/2018 21:35 Method of Delivery: Born in Route : No : N/A Forceps: N/A Vacuum Extraction: N/A Shoulder Dystocia : N/A SHOULDER DYSTOCIA BABY A Delivery Date/Time: 12/08/2018 21:35 PRESENTATION/POSITION BABY A Presentation: Cephalic Cephalic Presentation: Vertex Breech Presentation: N/A PLACENTA INFORMATION BABY A Placenta Delivery Time : 12/08/2018 21:36 Placenta Method of Delivery: Manual Removal Placenta Status: Delivered SCORES BABY A Heart Rate 1 min: >100 bpm Resp Effort 1 min: Good Cry Reflex Irritability 1 min: Cough/Sneeze/Pulls Away Muscle Tone 1 min: Active Motion Color 1 min: Blue/Pale Resuscitation Effort 1 min: Tactile Stimulation; PPV/NCPAP SCORE 1 MIN: 8 Heart Rate 5 min: >100 bpm Resp Effort 5 min: Good Cry Reflex Irritability 5 min: Cough/Sneeze/Pulls Away Muscle Tone 5 min: Active Motion Color 5 min: Body [place], Extremit Blue Resuscitation Effort 5 min: Tactile Stimulation; PPV/NCPAP SCORE 5 MIN: 9 INFORMATION BABY A Gestational Age at Delivery: 39.1 Gestational Status: Full Term- 39- 40.6 Weeks Infant Outcome : Liveborn Infant Condition : Stable Infant Sex: Female IDENTIFICATION/MEDS BABY A ID Band Number: [id number] ID Band Location: Right Leg; Left Arm Sensor Applied: Yes Sensor Number: [id number] Sensor Location : Cord Clamp Vitamin K Given : Not Given Erythromycin Given: Not Given WEIGHT/LENGTH BABY A Birthweight (gm): 3240 Weight (lb): 7 Infant Weight (oz): 2 Length (in): 20.50 Infant Length (cm): 52.07 CORD INFORMATION BABY A No. Cord Vessels: 3 Nuchal Cord : N/A Cord Blood Taken: Yes Suction: Mouth; Nose ASSESSMENT BABY A Complications: None Physical Findings at Delivery: Within Normal Limits Infant Respirations: Intercostal Retractions; Nasal Flaring Supervisor Pumping/ALS Called : No Care By: Carrol DONNIE/NICU RT Transferred To: Remains with Mother
== END 2018-12-11 19:30 | disposition home or self-care (01) | DRG 788 ==
LOC: L-D 09:25 → PP1 12-09 00:36
PROVIDERS: ADMIT Obstetrics & Gynecology; ATTEND Obstetrics & Gynecology
PROC: 10D00Z1 Extraction of Products of Conception, Low, Open Approach (ICD-10-PCS; principal; 2018-12-08)
DX: O34.211 Maternal care for low transverse scar from previous cesarean delivery (principal); O94 Sequelae of complication of pregnancy, childbirth, and the puerperium; O99.214 Obesity complicating childbirth; E66.01 Morbid (severe) obesity due to excess calories; Z3A.39 39 weeks gestation of pregnancy; Z37.0 Single live birth
CPT/HCPCS: 85025; 85610; 85730; 86592; 86850; 86900; 86901; 86920; 87340; 99464; J0690; J1100; J1885; J2210; J2274; J2405; J2590; J3010; J7120; J7121